=== PATIENT | female | born 1960 | race Two or more races ===

== ENCOUNTER 2020-04-27 14:19 | Outpatient (CLI) | payer OTHER | END 2020-04-27 14:23 | disposition home or self-care (01) | LOC: RAD 14:19 | PROVIDERS: ATTEND Radiology Diagnostic Radiology | DX: M79.671 Pain in right foot (principal) ==

== ENCOUNTER 2024-01-11 09:28 | Outpatient (CLI) | payer OTHER | END 2024-01-11 15:52 | disposition home or self-care (01) | LOC: MRI 09:28 | PROVIDERS: ATTEND Physical Medicine & Rehabilitation | DX: M54.16 Radiculopathy, lumbar region (principal) | CPT/HCPCS: 72148 ==

== ENCOUNTER 2024-04-04 12:55 | Outpatient (CLI) | payer OTHER | END 2024-04-04 15:06 | disposition home or self-care (01) | LOC: SONOGRAMA 12:55 | PROVIDERS: ATTEND Radiology Diagnostic Radiology | DX: R10.2 Pelvic and perineal pain (principal); N93.9 Abnormal uterine and vaginal bleeding, unspecified ==